=== PATIENT | male | born 1990 | race Two or more races ===

== ENCOUNTER 2024-07-19 06:15 | Day surgery (SDC) | payer OTHER, SELFPAY | END 2024-07-19 09:13 | disposition home or self-care (01) | LOC: GI 06:15 | PROVIDERS: ATTENDING PHYSICIAN Surgery | DX: K62.5 Hemorrhage of anus and rectum (principal); R19.7 Diarrhea, unspecified; K64.9 Unspecified hemorrhoids | CPT/HCPCS: 45380; 88305 ==